=== PATIENT | female | born 1990 | race American Indian/Alaskan Native ===

== ENCOUNTER 2020-02-25 11:27 | Emergency (ER) | payer MEDICAID ==
[2020-02-25] MEDS ORDERED: ONDANSETRON 4 MG/2 ML INJ IV ONE (12:33)
[2020-02-25] MEDS ORDERED: KETOROLAC 30 MG/1 ML INJ IV ONE (12:33)
[2020-02-25] MEDS ORDERED: MORPHINE 4 MG/1 ML INJ IV ONE (12:33)
[2020-02-25] MEDS ORDERED: MORPHINE 4 MG/1 ML INJ ONE (12:47)
[2020-02-25] MEDS ORDERED: ONDANSETRON 4 MG/2 ML INJ ONE (12:47)
[2020-02-25] MEDS ORDERED: KETOROLAC 30 MG/1 ML INJ ONE (14:49)
[2020-02-25] MEDS ORDERED: LORazepam 2 MG/ML VIAL ONE (14:49)
--- NOTE | 2020-02-25 15:19 | Emergency Department Report ---
ED Seizure HPI - History of Present Illness Initial Comments: 30-year-old female the past medical history of seizures presents to the hospital complaining of 2 seizures prior to arrival. Patient states before a seizure she typically has trembling of her hands, watering of her mouth, and tightness feeling in her tongue. Patient had 1 seizure at home and then 1 seizure in route with EMS. No meds provided. Patient has been out of [facility] for the past 2 weeks. Patient fell on her right side or when her seizures and has complained of right-sided head, posterior neck and right-sided neck, and right shoulder pain that is moderate to severe in intensity, constant, worse with movement and palpation without alleviating factors. Patient denies nausea, vomiting, blurred vision, slurred speech, or focal weakness or numbness. She states she has been having seizure disorder since April and denies any previous history of traumatic brain injury. - Related Data Previous Rx's Medication Instructions Recorded Last Taken Type Divalproex Dr [DepaKOTE DR] 1,000 mg PO BID 30 Days tablet 02/25/20 Unknown Rx Allergies Allergy/AdvReac Type Severity Reaction Status Date / Time No Known Allergies Allergy Unverified 02/25/20 16:39 ED Review of Systems ROS: Stated complaint: Other details as noted in HPI Comment: All other systems reviewed and negative ED Past Medical Hx - Medications Home Medications: Home Medications Medication Instructions Recorded Confirmed Last Taken Type Divalproex Dr [DepaKOTE DR] 1,000 mg PO BID 30 Days tablet 02/25/20 Unknown Rx ED Physical Exam - Other Other exam information: General: No acute distress Head: Right-sided frontoparietal scalp tenderness to palpation without hematoma or laceration Eyes: normal appearance ENT: Moist mucous membranes Neck: Patient presents in c-collar. Diffuse midline cervical tenderness without crepitus or step-off chest: Clear to auscultation bilaterally, chest wall nontender CV: Regular rate and rhythm Abdomen: Soft, normal bowel sounds, nontender, nondistended, no rebound or guarding Back: Normal inspection, nontender Extremity: Normal inspection, full range of motion, tenderness to right shoulder with palpation without deformity Neuro: Alert O x 3, no facial asymmetry, speech clear, equal handgrip and leg strength psych: Appropriate behavior Skin: No rash ED Course Vital Signs 02/25/20 12:04 Temperature 98.7 F Pulse Rate 62 Respiratory 18 Rate Blood Pressure 128/87 O2 Sat by Pulse 100 Oximetry ED Medical Decision Making - Lab Data Result diagrams: 02/25/20 12:37 02/25/20 12:37 - Radiology Data Radiology results: report reviewed Right shoulder x-ray no acute findings CT cervical spine: No acute findings CT head without contrast: No acute findings - Medical Decision Making Labs reviewed around 5 PM which was a significant delay in results of labs secondary to [employer] downtime. Patient c-collar was removed after negative CT head and cervical spine. Right shoulder x-ray was also negative. Patient did receive 4 mg of morphine and Ativan 0.5 mg while awaiting lab results. Labs reveal a subtherapeutic Depakote which reports patient has history of noncompliance. Plan was to load patient with Depakote and discharged on p.o. Depakote however, patient eloped from the department and did not inform MD or nurse of her plan to leave. Patient did leave with IV in place and therefore nurse instructed to call police department to ensure IV removal At 1800 hrs. nurse was able to contact patient via telephone who explained that she had eloped due to family emergency. Patient states she took her her old IV. She states she takes Depakote 1000 mg twice daily for seizures. She wants to come back up to the ED to receive her prescription. Patient eloped from the department and was not provided Depakote prior to elopement however, I will provide a prescription for Depakote for patient to [facility] Critical Care Time: No Critical care attestation.: If time is entered above; I have spent that time in minutes in the direct care of this critically ill patient, excluding procedure time. ED Disposition Clinical Impression: Seizure, Noncompliance with medication regimen, Musculoskeletal strain, Mild closed head injury Disposition: ELOPED Is pt being admited?: No Condition: Stable Instructions: Recurrent Seizures Adult (ED), Musculoskeletal Pain (ED) Additional Instructions: Take the medication as prescribed. Follow-up with your doctor or doctor/clinic provided. Return if symptoms worsen as indicated by your discharge instructions. Prescriptions: Divalproex Dr [DepaKOTE DR] 1,000 mg PO BID 30 Days tablet Referrals: PRIMARY MD SUKUMAR [Primary Care Provider] - 3-5 Days ASHA CHOW MD [Staff Physician] - 7-10 days (neurology) Time of Disposition: 17:08
[2020-02-25 15:50] LABS: Basophils % (Auto) 0.7 % (0.0-1.8); Eosinophils % (Auto) 0.7 % (0.0-4.3); Hematocrit 40.7 % (30.3-42.9); Hemoglobin 13.5 gm/dl (10.1-14.3); Lymphocytes # (Auto) 2.4 K/mm3 (1.2-5.4); Lymphocytes % (Auto) 43.5 % (13.4-35.0); Mean Corpuscular HGB Conc 33 % (30-34); Mean Corpuscular Volume 96 fl (79-97); Monocytes # (Auto) 0.2 K/mm3 (0.0-0.8); Monocytes % (Auto) 4.3 % (0.0-7.3); Platelet Count 246 K/mm3 (140-440); Red Blood Count 4.23 M/mm3 (3.65-5.03); Red Cell Distribution Width 13.7 % (13.2-15.2)
[2020-02-25 16:16] VITALS: BP 128/87
[2020-02-25] MEDS ORDERED: HYDROmorphone 1 MG/1 ML INJ IV ONE (16:50)
[2020-02-25] MEDS ORDERED: LORazepam 2 MG/ML VIAL IV ONE (16:50)
[2020-02-25 16:51] LABS: Blood Urea Nitrogen 13 mg/dL (7-17); Calcium 9.3 mg/dL (8.4-10.2); Hemolysis Index 11
[2020-02-25] MEDS ORDERED: HYDROmorphone 1 MG/1 ML INJ ONE (16:51)
[2020-02-25 16:52] LABS: BUN/Creatinine Ratio 19
--- NOTE | 2020-02-25 17:05 | Cat Scan Report ---
. CT HEAD WO INDICATION / CLINICAL INFORMATION: 29 years Female; SZ. TECHNIQUE: Routine CT head without contrast. All CT scans at this location are performed using CT dos e reduction for ALARA by means of automated exposure control. Study limited by motion artifact and pa tient positioning COMPARISON: None. FINDINGS: BRAIN / INTRACRANIAL CONTENTS: No acute hemorrhage, mass effect, midline shift, hydrocephalus, or acu te, large territorial infarct. No chronic infarct or atrophy appreciated. No significant white matter abnormality. CRANIOCERVICAL JUNCTION: No significant abnormality. ORBITS: No significant abnormality of visualized orbits. SINUSES / MASTOIDS: There may be minimal mucosal thickening in the ethmoids and mastoids. ADDITIONAL FINDINGS: Dental caries suggested in the posterior molars along the right mandibular alveo lar ridge. IMPRESSION: 1. No focal mass, hemorrhage, hydrocephalus, or acute, large territorial infarct, although this exam is limited by motion and patient positioning. Follow-up as clinically warranted. Signer Name: Jose Antonio Manuel MD, III Signed: 02/25/2020 2:00 PM Workstation Name: [id number]
--- NOTE | 2020-02-25 17:10 | Cat Scan Report ---
CT CERVICAL WO INDICATION / CLINICAL INFORMATION: 29 years Female; FALL PAIN SZ. TECHNIQUE: Axial CT images of the cervical spine were obtained. Sagittal and coronal reformatted images were pr oduced. All CT scans at this location are performed using CT dose reduction for ALARA by means of aut omated exposure control. COMPARISON: None available. FINDINGS: POST-SURGICAL CHANGES: None. ALIGNMENT: The motion and beam hardening degrades the image quality. However, there is slight curvatu re of the cervical spine, convex toward the right. There is no significant spondylolisthesis. VERTEBRAE: There is no clear CT evidence of acute fracture involving the cervical spine. INTRAVERTEBRAL DISCS: The intervertebral disc spaces appear fairly well-maintained without clear CT e vidence of significant bony spinal stenosis. There is mild left foraminal narrowing at C3-4 and C4-5. PARASPINAL SOFT TISSUES: No definitive prevertebral soft tissue fluid collections are identified. ADDITIONAL FINDINGS: None. IMPRESSION: 1. There is no CT evidence of acute fracture involving the cervical spine. Signer Name: Bola Godinez MD Signed: 02/25/2020 2:07 PM Workstation Name: [id number]
--- NOTE | 2020-02-25 17:11 | XRay Report ---
RIGHT SHOULDER 3 VIEWS INDICATION / CLINICAL INFORMATION: FALL RT SHOULDER PAIN . COMPARISON: None available. FINDINGS: Images are labeled left, but this is the right shoulder. No fracture, dislocation or other significant abnormality. Signer Name: Srinivas Calvillo MD Signed: 02/25/2020 1:59 PM Workstation Name: [id number]
== END 2020-02-25 18:00 | disposition left against medical advice (07) ==
LOC: ED 15:04
DX: S46.811A Strain of other muscles, fascia and tendons at shoulder and upper arm level, right arm, initial encounter (principal); S09.90XA Unspecified injury of head, initial encounter; R56.9 Unspecified convulsions; X58.XXXA Exposure to other specified factors, initial encounter; Y93.89 Activity, other specified; Y92.89 Other specified places as the place of occurrence of the external cause; Y99.8 Other external cause status
CPT/HCPCS: 36415; 70460; 72126; 73030; 80048; 80164; 83735; 84703; 85025; 96374; 96375; 99284; J1170; J1885; J2060; J2270; J2405; Q9967